=== PATIENT | male | born 1935 | race Caucasian/White ===

== ENCOUNTER → 2018-05-13 | Outpatient (CLI) | payer MEDICARE | LOC: M.RAD 08:52 | DX: J44.0 Chronic obstructive pulmonary disease with (acute) lower respiratory infection (principal) ==

== ENCOUNTER 2019-01-16 08:30 | Inpatient (IN) | payer MEDICARE ==
[2019-01-16] VITALS (8 sets, daily range): BP systolic 106–141; BP diastolic 28–55
[~2019-01-16] VITALS: Ht 177.8 cm; Wt 65.7 kg
--- NOTE | ~2019-01-16 | CON ---
[facility] [address] [place] [address] CONSULTATION Name: JOY LESTER Room: [address] IN M.R.#: [id number] Admission: 01/16/19 Attend Phys: Dolly Jimenes MD Discharge: Date of : 37 Report #: [id number] THIS REPORT FOR: //name// CC: Cristi Jimenes DATE OF SERVICE: 01/18/2019 CONSULTATION: Infectious diseases. HISTORY OF PRESENT ILLNESS: The patient is an 83-year-old white male admitted to [facility] on February 06, complaining of nausea, vomiting and possibly diarrhea for about a day and a half. The patient was noted to be short of breath and have low blood pressure. He had a history of abdominal aortic aneurysm. There was concern the patient may have an impending ruptured aneurysm. He was admitted to the hospital. The aneurysm workup was negative, but the patient was noted to have an elevated white count at 37,000. He was started on cefepime, Flagyl, oral vancomycin 500 mg q.i.d. and IV Cipro. Despite of this intensive antibiotic therapy, the white count went up to 82,000 as hemoglobin fell from 9.7 to 7.6. Infectious Disease consultation was requested to assist with antibiotic management. The patient had been admitted recently to [facility] from January 06-January 10 with a diagnosis of sepsis. He was discharged on Augmentin. He thought he was doing pretty well until he developed the GI symptoms at the end of December. PAST MEDICAL HISTORY: Past history is significant for COPD, on chronic oxygen. The patient has a diagnosis of rheumatic heart disease and mild aortic and tricuspid valve, although they both looked pretty good on the echocardiogram as described below. MEDICATIONS RECONCILIATION: The patient's current medications are as follows: Vancomycin 500 mg q. 12, enoxaparin 40 mg subcutaneously at bedtime, vancomycin 500 mg p.o. q.i.d., cefepime 2 g IV daily, lorazepam 0.5 mg q. 6 IV p.r.n., ondansetron 4 mg IV q. 6 p.r.n., diphenhydramine 25 mg at bedtime p.o. p.r.n., ipratropium and albuterol aerosol 3 mL q. 4h. by inhalation, fluticasone proprionate spray each nostril daily, metronidazole 500 mg q. 8, phosphate, magnesium, potassium as needed, methylprednisolone 62.5 mg q. 12, tamsulosin 0.4 mg daily, guaifenesin 600 mg p.o. b.i.d. and pantoprazole 40 mg IV b.i.d. SOCIAL HISTORY: The patient is . Apparently, he was a smoker, although this is not quantified in the chart. No history of alcohol. REVIEW OF SYSTEMS: Unavailable [place] [address] CONSULTATION Name: JOY LESTER Room: [address] IN [facility].#: [id number] Admission: 01/16/19 Attend Phys: Dolly Jimenes MD Discharge: Date of : 36 Report #: [id number] PHYSICAL EXAMINATION: GENERAL: The patient appears his stated age, sedated and minimally responsive but not in any distress. He appears comfortable. SKIN: Sallow but without rash, lesion or exanthem. ENT: Negative. HEART: Sounds S1 and S2. CHEST: Breath sounds are diminished. ABDOMEN: Belly is obese, soft and nontender. EXTREMITIES: Unremarkable. LABORATORY DATA: The white count is 82,000. Of note, the patient had a leukocytosis 2 weeks ago at [facility]. The family states it was measured at 79,000 and a bone marrow biopsy was done. They were scheduled to follow up with the buckle attacher in the office but would not able to make the appointment because the patient was too ill. Hemoglobin has gone from 9.7 to 7.6 and hematocrit 25%. Electrolytes are normal. BUN 32, creatinine 1.7 and glucose is 240 in a patient without a diagnosis of diabetes. Lactic acid is 1.9. Troponin has gone from 0.06 to 0.07 to 0.09. Liver function tests are normal. The blood gas showed pH 7.16, pCO2 of 51.9 and pO2 of 78. RADIOLOGICAL DATA: CT scan showed rectosigmoid colitis. The patient had a calcified aortic aneurysm, which looks like it had an earlier dissection, which calcified. Echocardiogram showed sclerosis of the aortic valve, but no stenosis nor insufficiency. The mitral valve and tricuspid valves has thickened leaflets with mild insufficiency. ASSESSMENT AND PLAN: In summary, the patient was treated for "sepsis" at [facility]. He returns 2 weeks later while still on antibiotics, complaining of nausea, vomiting, possibly diarrhea. He has a very high white count. A CT scan suggested colitis as well as respiratory insufficiency. At this time, I would like to simplify the antibiotics to treat for possible pneumonia. We will use cefepime and Flagyl. I am concerned about Clostridium difficile colitis, although the patient is having formed stool in the lab as rejected the study for Clostridium difficile as a result. I would think oral vancomycin though it would be reasonable given colitis in the setting of antibiotics. Study suggested 125 mg is as effective as 500 mg. I would like to discontinue the Cipro as this simply increases in the pressure towards Clostridium difficile and related to that much to the cefepime. I think we should check a hemoglobin A1c with the hyperglycemia. It would be relevant to obtain the records from [facility] in particular to see the comments of the hematologists and pathologist to review the bone marrow. I want to do a followup chest x-ray. We will give lactobacillus to try to prevent Clostridium difficile. If the patient should have any liquid stool, will allow the nurses send [place] [address] CONSULTATION Name: JOY LESTER Room: [address] IN .R.#: [id number] Admission: 01/16/19 Attend Phys: Dolly Jimenes MD Discharge: Date of : 36 Report #: [id number] For now, we will simplify the antibiotics to cefepime, Flagyl and oral vancomycin. We will await results of the request for records from [facility] and continue supportive therapy. I appreciate the opportunity of input in the care of this complex patient. Dr. Swanson will return tomorrow and assume additional followup care. By: 0052 [id number] Tom MD /nt
--- NOTE | ~2019-01-16 | PROC ---
[address] [address] PROCEDURE REPORT Name: JOY LESTER Room: [address] IN .R.#: [id number] Admission: 01/16/19 Attend Phys: Dolly Jimenes MD Discharge: Date of : 36 Report #: [id number] THIS REPORT FOR: //name// For GI report, please see the Provation report in Perceptive 7 content. By: 1325Medical Records Staff [facility] /MICHELLE
--- NOTE | ~2019-01-16 | CON ---
[address] [address] CONSULTATION Name: TAYLERJOY E Room: [address] IN .R.#: [id number] Admission: 01/16/19 Attend Phys: Dolly Jimenes MD Discharge: Date of : 36 Report #: [id number] THIS REPORT FOR: //name// CC: Cristi Jimenes DATE OF SERVICE: 01/16/2019 INPATIENT CONSULTATION REQUESTING PHYSICIAN: Dr. Jimenes REASON FOR CONSULTATION: History of respiratory insufficiency, diastolic heart failure. HISTORY OF PRESENT ILLNESS: The patient is an 83-year-old man who presented with colitis, shortness of breath difficulties and had evidence of pulmonary congestion. He was admitted to the ICU and placed on broad-spectrum antibiotics and diuretics with improvement overall in his clinical respiratory function with diuresis. He did have an echocardiogram on the first of this month, which demonstrated grossly normal LV systolic function, moderately elevated PA pressures and aortic sclerosis. Clinically, the patient is a poor historian. He is a bit confused, has a bit of an encephalopathy, so he was not able to give a good history, but there does not appear to be any evidence of chest pain or pressure, but had been progressively more short of breath. GI has seen him and there was concern he may have C. diff colitis. He is on broad spectrum antibiotics. PAST MEDICAL HISTORY: He carries the following medical problems: Acute on chronic kidney disease, sepsis syndrome, urinary retention, COPD, rheumatic heart disease, thrombocytopenia. MEDICATIONS: He was on the following medications on presentation: Augmentin, Colace, Flonase, guaifenesin, albuterol, Atrovent, Zantac, Flomax. SOCIAL HISTORY: Currently not actively smoking without ethanol use. FAMILY HISTORY: Noncontributory. REVIEW OF SYSTEMS: CARDIOVASCULAR: He is without chest [place] [address] CONSULTATION Name: JOY LESTER Room: [address]#: [id number] Admission: 01/16/19 Attend Phys: Dolly Jimenes MD Discharge: Date of : 36 Report #: [id number] PULMONARY: Positive shortness of breath. NEUROLOGIC: Denies seizures. Positive confusion. HEMATOLOGIC: No history of anemia. RENAL: Positive history of chronic kidney disease. SKIN: No rashes. PHYSICAL EXAMINATION: VITAL SIGNS: Stable, in sinus rhythm with a blood pressure of 121/83. GENERAL: This is a confused elderly male. He is in no apparent distress. HEENT: Eyes are intact. No facial asymmetry. NECK: Supple, no jugular venous distention. CARDIOVASCULAR: Regular. There is a faint apical murmur. LUNGS: Clear to auscultation with diminished breath sounds. ABDOMEN: Nontender. EXTREMITIES: There is no peripheral edema. Distal extremity pulses, radial and dorsalis pedis pulses are normal. LABORATORY DATA: Electrocardiogram shows sinus rhythm with atrial enlargement. There is a pulmonary disease. IMPRESSION: 1. Respiratory insufficiency. I suspect this is a combination of mild diastolic heart failure and volume overload from his initial presentation with gastrointestinal illness and he has responded to Lasix. He has underlying lung disease. 2. Acute on chronic diastolic heart failure. 3. Tricuspid regurgitation, is likely secondary to obstructive lung disease. At this point, I would continue with gentle diuresis, but given he has kidney dysfunction, I would probably stop IV Lasix today. He seems to have improved clinically. I would monitor his intake and output. By: 1120 0008Josh French MD, FACC /nt
[2019-01-16 09:03] LABS: POC CA IONIZED 4.6 mg/dL (4.5-5.3); POC CREATININE 1.6 mg/dL (0.6-1.3); POC HEMOGLOBIN 9.9 g/dL (12.0-17.0); POC POTASSIUM 4.7 mmol/L (3.5-4.9)
[2019-01-16 09:29] LABS: HEMOGLOBIN 9.7 gm/dL (14.0-18.0); MCH 31.6 pg (26.0-34.0); MCHC 32.4 g/dL (28.0-37.0); MCV 97.3 fL (80.0-100.0); MPV 9.6 fl. (7.2-11.1); NUCLEATED RBCS 0 /100WBC; PLATELET COUNT* 83 thou/uL (150-400); RBC 3.08 mil/uL (4.50-6.00); RDW-CV 14.8 % (10.5-14.5)
[2019-01-16 09:52] LABS: ABSOLUTE LYMPHOCYTES 1.1 thou/uL (0.8-5.3); ABSOLUTE MONOCYTES 0.7 thou/uL (0.0-1.2); ABSOLUTE NEUTROPHILS 35.2 thou/uL (1.6-8.1); ATYPICAL LYMPHS 1 %; METAMYELOCYTES 3 %; PLATELET ESTIMATE DECREASED
[2019-01-16] MEDS ORDERED: AUGMENTIN 875-1 EACH PO (10:02)
[2019-01-16] MEDS ORDERED: COLACE100 MG PO (10:03)
[2019-01-16] MEDS ORDERED: FLONASE 0.05%50 MCG NASAL (10:03)
[2019-01-16] MEDS ORDERED: SINGULAIR 10 MG10 M1 PO (10:04)
[2019-01-16] MEDS ORDERED: IPRAT-ALBUT 0.5-3 ML INH (10:04)
[2019-01-16] MEDS ORDERED: GUAIFENESIN ER600 MG PO (10:04)
[2019-01-16] MEDS ORDERED: ZANTAC 150MG T150 MG PO (10:05)
[2019-01-16] MEDS ORDERED: PREDNISONE 10 M10 MG PO (10:05)
[2019-01-16] MEDS ORDERED: FLOMAX0.4 MG PO (10:06)
[2019-01-16] MEDS ORDERED: FLORASTOR250 MG PO (10:06)
--- NOTE | 2019-01-16 10:36 | NUR ---
URINE ORDERED, STATES HE IS UNABLE TO GO DUE TO NOT HAVING FLOWMAX FOR 3 DAYS, ATTEMPTED TO STRAIGHT CATH, NO URINE OBTAINED, ED MD AWARE
[2019-01-16 10:38] LABS: ALBUMIN 3.1 g/dL (3.4-5.0); ALKALINE PHOSPHATASE 87 U/L (46-116); ANION GAP 10 mmol/L (7-16); BUN 37 mg/dL (7-18); CALCIUM 8.5 mg/dL (8.5-10.1); CHLORIDE 103 mmol/L (98-107); CO2 29 mmol/L (21-32); GLUCOSE 147 mg/dL (70-99); LIPASE 50 U/L (73-393); POTASSIUM 4.1 mmol/L (3.5-5.1); SGOT 19 U/L (15-37); SGPT 26 U/L (30-65); SODIUM 142 mmol/L (136-145); TOTAL BILIRUBIN 0.6 mg/dL (<0.1-1.0); TOTAL PROTEIN 6.2 g/dL (6.4-8.2)
[2019-01-16 11:27] LABS: URINE BILIRUBIN NEGATIVE (Negative); URINE BLOOD 2+ (Negative); URINE CLARITY CLEAR; URINE COLOR YELLOW; URINE GLUCOSE-RANDOM NEGATIVE (Negative); URINE KETONES NEGATIVE (Negative); URINE LEUKOCYTES-REFLEX NEGATIVE (Negative); URINE NITRITE-REFLEX NEGATIVE (Negative); URINE PROTEIN NEGATIVE (Negative); URINE UROBILINOGEN 0.2 E.U./dl (0.2-1.0)
[2019-01-16 11:38] LABS: BACTERIA-REFLEX 1-9 Few /HPF (None Seen); CASTS None Seen /LPF (None Seen); CRYSTALS None Seen /LPF (None Seen); MUCUS None Seen strn/LPF (None Seen); SQUAMOUS 4-10 Moderate /LPF (0-3); URINE RBC >20 Many /HPF (0-2); URINE WBC-REFLEX 0-5 Rare /HPF (0-5)
[2019-01-16 11:39] LABS: TROPONIN-I LEVEL <0.06 ng/mL (<0.06)
--- NOTE | 2019-01-16 15:40 | EKG ---
[place] [address] ELECTROCARDIOGRAM REPORT Name: JOY LESTER Room: [address] ADM IN .R.#: [id number] Admission: 01/16/19 Attend Phys: Dolly Jimenes MD Discharge: Date of : 37 Report #: [id number] THIS REPORT FOR: //name// [facility] ED Test Date: 2019-01-16 Test Time: 08:51:03 Pat Name: JOY LESTER Department: Room: [facility] Gender: M [employer]umping [employer] Engineer: SELENA : 1935 Requested By: Philippe Will Order Number: [id number] MD: Juan C Baeza Measurements Intervals [place] Rate: 98 P: 89 IA: 140 QRS: 10 QRSD: 86 T: 46 QT: 343 QTc: 438 Interpretive Statements Sinus rhythm Atrial premature complex Right atrial enlargement Low voltage, extremity leads Consider anterior infarct Minimal ST depression, inferior leads No previous ECG available for comparison Electronically Signed On 01-16-2019 15:40:08 ASSISTANT WOMEN'S SOCCER COACH by Juan C Baeza [email or web address] <ELECTRONICALLY SIGNED> By: Juan C Baeza MD, [facility] 01/16/19 1540 [phone] Juan C Baeza MD, [facility] /EPI
--- NOTE | 2019-01-16 16:07 | 2DMMODE ---
[place] [address] 2 D/M-MODE ECHOCARDIOGRAM Name: JOY LESTER Room: [address] IN [facility]#: [id number] Admission: 01/16/19 Attend Phys: Dolly Jimenes, Discharge: Date of : 37 Date of Service: 01/16/19 1607 Report #: [id number] THIS REPORT FOR: //name// APPROVED REPORT Study performed: 01/16/2019 14:24:21 EXAM: Comprehensive 2D, Doppler, and color-flow Echocardiogram Patient Location: In-Patient Room #: [facility] Status: routine BSA: 1.85 HR: 89 bpm BP: 140/55 mmHg Rhythm: NSR Other Information Study Quality: Good Indications Dyspnea 2D Dimensions IVSd: 10.34 (7-11mm) LVOT Diam: 20.96 (18-24mm) LVDd: 38.42 mm PWd: 10.61 (7-11mm) Ascending Ao: 33.05 (22-36mm) LVDs: 23.17 (25-40mm) Aortic Root: 33.68 mm Aortic Valve AoV Peak Brian.: 1.33 m/s AO Peak Gr.: 7.07 mmHg LVOT Max P.63 mmHg AO Mean Gr.: 4.07 mmHg LVOT Mean P.51 mmHg LVOT Max V: 0.81 m/s AO V2 VTI: 22.51 cm LVOT Mean V: 0.58 m/s MARIN (VTI): 2.89 cm2 LVOT V1 VTI: 18.87 cm Mitral Valve E/A Ratio: 0.68 MV Decel. Time: 211.34 ms MV E Max Brian.: 0.77 m/s MV PHT: 61.29 ms MVA (PHT): 3.59 [place] [address] 2 D/M-MODE ECHOCARDIOGRAM Name: JOY LESTER Room: [address] IN ..#: [id number] Admission: 01/16/19 Attend Phys: Dolly Jimenes, Discharge: Date of : 37 Date of Service: 01/16/19 1607 Report #: [id number] E/Lateral E': 7.70 E/Medial E': 8.56 Medial E' Brian.: 0.09 m/s Lateral E' Brian.: 0.10 m/s Pulmonary Valve PV Peak Brian.: 1.06 m/s PV Peak Gr.: 4.52 mmHg Tricuspid Valve RAP Estimate: 5.00 mmHg TR Peak Gr.: 31.06 mmHg RVSP: 36.00 mmHg PA Pressure: 36.00 mmHg Left Ventricle The left ventricle is normal size. There is normal LV segmental wall motion. There is normal left ventricular wall thickness. Left ventricular systolic function is normal. The left ventricular ejection fraction is within the normal range. LVEF is 65-70%. Grade I - abnormal relaxation pattern. Right Ventricle The right ventricle is normal size. The right ventricular systolic function is normal. Atria The left atrium size is normal. The right atrium size is normal. Aortic Valve Mild aortic valve sclerosis. No aortic regurgitation is present. There is no aortic valvular stenosis. Mitral Valve Mitral valve leaflets are thickened. Mild mitral regurgitation. No evidence of mitral valve stenosis. Tricuspid Valve The tricuspid valve is normal in structure. Mild tricuspid regurgitation. estimated pa pressure 40 mm Hg Pulmonic Valve The pulmonary valve is normal in structure. There is no pulmonic valvular regurgitation. Great Vessels The aortic root is normal in size. IVC is normal in size and collapses >50% [place] [address] 2 D/M-MODE ECHOCARDIOGRAM Name: JOY LESTER Room: [address] IN [facility]#: [id number] Admission: 01/16/19 Attend Phys: Dolly Jimenes, Discharge: Date of : 37 Date of Service: 01/16/19 1607 Report #: [id number] Pericardium There is no pericardial effusion. <Conclusion> LVEF is 65-70%. Mild aortic valve sclerosis. Mitral valve leaflets are thickened. Mild mitral regurgitation. Mild tricuspid regurgitation. estimated pa pressure 40 mm Hg <ELECTRONICALLY SIGNED> By: Juan C Baeza MD, [facility] 01/16/19 1607 06 160 Juan C Baeza MD, FAC /INF
--- NOTE | 2019-01-16 18:58 | NUR ---
pt arrived to room 222 from ER at approx 1240, pt oriented to self. Very drowsy, slurred speech, on 2l o2. VSS on arrival. Santiago in place draining dark yellow urine. pt c/o some back pain, and some nausea. no BM today, pt placed in isolation to check for c-diff, pts states he has not had any loose stools recently. pts daughters in to visit this afternoon, admission done as charted with DPOA assist. Pts BP noted to be low, dr notified, orders recieved. pt moniotored gail, at bedside this evening. fall precatuions in place. will continue to monitor.
[2019-01-17 00:41] VITALS: BP 103/39
--- NOTE | 2019-01-17 04:46 | NUR ---
ASSUMED CARE OF PT AFTER REPORT AT 1930. PT A&OX2-3. NOT ORIENTED TO PLACE AND TIME. LETHARGIC. PT ON O2 AT 2L NC/TRILOGY WHEN SLEEPING WITH 98% O2 SAT. PT TRACING SR/PACS ON TELE. PT WITH BROWN TO DEPENDENT DRAIN. MAINTAINED ON ISOLATION PRECUATION FOR POSSIBLE C. DIFF. PT WITH WOUND ON RIGHT HIP. CLEANED & PAT DRY. PHOTOGRAPH TAKEN. COVERED WITH MEPILEX. PT DENIES ANY PAIN OR DISCOMFORT. TURNED PT TO SIDES. CALL LIGHT WITHIN REACH. FALL PRECAUTIONS IN PLACE.
[2019-01-17 04:53] VITALS: BP 120/44
[2019-01-17 08:00] VITALS: BP 97/31
[2019-01-17 10:19] LABS: ABSOLUTE LYMPHOCYTES 0.6 thou/uL (0.8-5.3); ABSOLUTE MONOCYTES 0.3 thou/uL (0.0-1.2); ABSOLUTE NEUTROPHILS 31.5 thou/uL (1.6-8.1); BASOPHILS 0.1 %; HEMATOCRIT 24.2 % (42.0-52.0); LYMPHOCYTES 1.8 %; MCH 32.1 pg (26.0-34.0); MCHC 31.8 g/dL (28.0-37.0); MCV 100.7 fL (80.0-100.0); MPV 9.4 fl. (7.2-11.1); NUCLEATED RBCS 0 /100WBC; PLATELET COUNT* 70 thou/uL (150-400); POLYS 97.1 %; RDW-CV 16.2 % (10.5-14.5); WBC 32.5 thou/uL (4.0-11.0)
[2019-01-17 10:21] LABS: HEMOGLOBIN 7.7 gm/dL (14.0-18.0)
[2019-01-17 10:46] LABS: ALBUMIN 2.5 g/dL (3.4-5.0); ALKALINE PHOSPHATASE 66 U/L (46-116); ANION GAP 10 mmol/L (7-16); BUN 32 mg/dL (7-18); CALCIUM 7.1 mg/dL (8.5-10.1); CHLORIDE 111 mmol/L (98-107); CO2 23 mmol/L (21-32); CREATININE 1.7 mg/dL (0.6-1.3); GLUCOSE 217 mg/dL (70-99); MAGNESIUM 2.2 mg/dL (1.8-2.4); POTASSIUM 4.3 mmol/L (3.5-5.1); SGOT 17 U/L (15-37); SGPT 22 U/L (30-65); SODIUM 144 mmol/L (136-145); TOTAL BILIRUBIN 0.2 mg/dL (<0.1-1.0); TOTAL PROTEIN 4.9 g/dL (6.4-8.2); TROPONIN-I LEVEL <0.06 ng/mL (<0.06)
[2019-01-17 12:00] VITALS: BP 111/40
--- NOTE | 2019-01-17 15:38 | NUR ---
PT CARE ASSUMED AFTER REPORT. ASSESSMENT COMPLETE. SR WITH PAC'S ON MONITOR. PT BP LOW THIS AM, 95/35. DR ANDERSON NOTIFIED. 500ML BOLUS GIVEN. PT BP BETTER AFTER BOLUS. PT LETHARGIC PRIOR TO BOLUS. ALERT NOW. NEW IV ACCESS OBTAINED R/T PREVIOUS ONE LEAKING. BROWN TO DD. IVF INFUSING. DENIES PAIN. PROGRESSING TOWARDS GOALS. FAMILY CONCERNS ADDRESSED PER THIS NURSE AND DR ANDERSON.
[2019-01-17 16:00] VITALS: BP 123/90
[2019-01-17 20:00] VITALS: BP 123/44
[2019-01-18] VITALS (16 sets, daily range): BP systolic 102–138; BP diastolic 29–88
--- NOTE | 2019-01-18 05:46 | NUR ---
ASSUMED ACRE OF PT AFTER REPORT AT 1930. PT A&OX2. NOT ORIENTED TO PLACE & TIME. VSS. PHSICAL ASSESSMENT COMPLETED AND CHARTED. PT ON O2 AT 2 WITH 96% O2 SAT. PT NOT TOLERATING TRILOGY TONIGHT. PT TRACING SR/ST ON TELE. PT WITH BROWN TO DEPENDENT DRAIN. PT COMPLAINED OF SOA. LABORED BREATHING RR-30'S-40'S. HR 120'S-140'S. INCREASED O2 AT 3L NC. DR ANDERSON INFORMED WITH NEW ORDER OF STAT XRAY & ABG. CRITICAL ABG & WBC RELAYED TO DR ANDERSON. PT HAS NOT SLEPT ALL NIGHT. CALL LIGHT WITHIN REACH. MAINTAINED ON ISOLATION PRECAUTION. STOOL SPECIMEN WILL SEND TO LAB.
[2019-01-18 05:51] LABS: ALBUMIN 2.8 g/dL (3.4-5.0); CALCIUM 7.3 mg/dL (8.5-10.1); CREATININE 1.7 mg/dL (0.6-1.3); MAGNESIUM 2.1 mg/dL (1.8-2.4); TOTAL BILIRUBIN 0.3 mg/dL (<0.1-1.0); TOTAL PROTEIN 5.4 g/dL (6.4-8.2); TROPONIN-I LEVEL 0.09 ng/mL (<0.06)
--- NOTE | 2019-01-18 06:30 | NUR ---
TRANSFERRED FROM TELE TO ICU. REPORT GIVEN. PLACED ON BIPAP PER DR. ANDERSON'S ORDERS. LASIX AND ATIVAN GIVEN, PATIENT WAS PULLING OF BIPAP. LOOKS MORE COMFORTABLE BUT STILL TACHYPNEIC. REPORT GIVEN TO LAUREN Gomez RN. SHE WILL BE CALLING PULM AND CARD CONSULTS.
--- NOTE | 2019-01-18 09:39 | NUR ---
YUNI COPELAND FROM LAB CALLED TO GIVE CRITICAL VALUES. VALUES GIVEN TO DR RETANA AT 0900 AND REPORTED TO BRIAN AGUILAR AT 0845.
--- NOTE | 2019-01-18 18:06 | NUR ---
PT PROGRESSING TOWARDS GOALS THIS SHIFT. PT TITRATED TO NC AT 3.5L OXYGEN FROM BIPAP. TOLERATING WELL. PT TO WEAR BIPAP WHILE SLEEPING. ISOLATION FOR C-DIFF DC'D D/T PT NOT HAVING ANY STOOLS. PT HAS HAD ONE STOOL SINCE ADMISSION THAT WAS FORMED. NO OTHER CONCERNS AT THIS TIME. CLWR. WCTM.
[2019-01-19] VITALS (11 sets, daily range): BP systolic 119–156; BP diastolic 41–85
--- NOTE | 2019-01-19 07:24 | NUR ---
VITALS WNL. SEE MAR. SEE CHARTING. FALL PRECATUIONS IN PLACE.
--- NOTE | 2019-01-19 09:44 | NUR ---
Nutrition: Pt assessed for nursing risk 2 points. Admitted with coliitis. GI eval in near future. Only 1 BM since admit, vanc stopped. On lasix, on bipap. BUN 36, cr 1.7, BG 190s, alb 2.7, prealb 16.2. Chopped diet. Wt fluctuating 150, 125, 118, 141#. Pt in [facility] with recent PNA, COPD, decreased appetite, per H&P. Will follow wt trends, po intake, BM, need for supplement. Mild risk. 01/24/19. PLEASE REWEIGH FOR ACCURACY.
--- NOTE | 2019-01-19 14:00 | NUR ---
PT ADMITTED 01/16 WITH COLITIS AND TRELL. PT NOW TELE STATUS. NO FAMILY HERE EARLIER AND PT WAS SLEEPING. SPOKE WITH TR[facility] FROM [facility]. PT HAD BEEN ON SERVICE WITH THEM FOR HOME HEALTH, THEY WERE GETTING READY TO DISCHARGE HIM FROM HOME HEALTH, WITH THE PLAN TO TRANSITION HIM TO HOSPICE WITH [facility]. WILL TALK WITH PT AND FAMILY ABOUT DISCHARGE PLANS.
--- NOTE | 2019-01-19 14:52 | NUR ---
WOUND NURSE: PATIENT SEEN TO ADDRESS SKIN LESION ON THE RIGHT HIP. APPEARS TO BE A SMALL SKIN LESION FROM A SCRATCH MEASURING 0.1 X 0.5 X 0.1 CM. THERE IS NO DRAINAGE. CLEANSED WITH SOAP AND WATER, RINSED WITH WATER, THEN PATTED DRY. APPLIED MARTHON SKIN PROTECTANT TO WOUND AND LET DRY, THEN TABLE HAND. THIS WAS TOLERATED WELL BY PATIENT.
--- NOTE | 2019-01-19 18:12 | NUR ---
PT REMAINS STABLE THROUGHOUT THE DAY. SPEECH EVALUATED PT. PT SHOWED SIGNS OF DESATURATION, O2 WAS TITRATED TO RETURN SATURATION BACK TO BASELINE >90. PT MADE NPO AFTER SPEECH EVAL DUE TO RISK FOR ASPIRATION. WILL REMAIN NPO UNTIL TOMORROW FOR SWALLOW STUDY. PT FOLLOWS COMMANDS AND REMAINS CONFUSED AT TIMES. PT COMPLAINS OF BEING THIRSTY BUT REMAINS COMFORTABLE. PT REFUSED TURNS THROUGHOUT MOST OF THE DAY EVEN AFTER EDUCATING PATIENT ABOUT RISK FOR BEDSORES.
[2019-01-19 23:07] LABS: GLYCOHEMOGLOBIN (HGB A1C) 6.3 % (4.8-5.6)
[2019-01-20] VITALS: BP 143/51
[2019-01-20 04:00] VITALS: BP 129/57
[2019-01-20 04:29] LABS: HEMATOCRIT 23.1 % (42.0-52.0); HEMOGLOBIN 7.5 gm/dL (14.0-18.0); MCHC 32.6 g/dL (28.0-37.0); MCV 98.1 fL (80.0-100.0); MPV 10.4 fl. (7.2-11.1); RBC 2.36 mil/uL (4.50-6.00); RDW-CV 15.2 % (10.5-14.5)
[2019-01-20 04:34] LABS: ALBUMIN 2.6 g/dL (3.4-5.0); CALCIUM 8.1 mg/dL (8.5-10.1); CREATININE 1.8 mg/dL (0.6-1.3); POTASSIUM 4.5 mmol/L (3.5-5.1); TOTAL BILIRUBIN 0.4 mg/dL (<0.1-1.0)
[2019-01-20 04:38] LABS: WBC 34.8 thou/uL (4.0-11.0)
--- NOTE | 2019-01-20 06:12 | NUR ---
VITALS WNL. SEE MAR. SEE CHARTING. FALL PRECAUTIONS IN PLACE. HOURLY ROUNDING FOR SAFETY.
[2019-01-20 06:25] LABS: BE 0.8 mmol/L (-2 to +3); PCO2 41.8 mmHg (35.0-45.0); pH 7.405 (7.340-7.450)
[2019-01-20 06:29] LABS: PO2 213.4 mmHg (75.0-100.0)
[2019-01-20 08:31] VITALS: BP 137/76
[2019-01-20 12:35] VITALS: BP 131/47
[2019-01-20 15:30] VITALS: BP 149/60
--- NOTE | 2019-01-20 18:30 | CON ---
[address] [address] CONSULTATION Name: JOY LESTER Room: [address] IN M.R.#: [id number] Admission: 01/16/19 Attend Phys: Dolly Jimenes MD Discharge: Date of : 37 Report #: [id number] THIS REPORT FOR: //name// CC: Cristi Jimenes DATE OF SERVICE: 01/17/2019 REASON FOR CONSULT: Diarrhea, abdominal pain and abnormal CT. HISTORY OF PRESENT ILLNESS: This is an 83-year-old male with a history of COPD, who is on 3 liters of O2 at home. The patient apparently was discharged from [facility] with diagnosis of sepsis and respiratory failure. During his stay there, he received lots of IV steroids and antibiotics. Today, the patient denies any abdominal pain or diarrhea. He also denies nausea and vomiting and reports that he has been eating well. He has a weight loss of 20 pounds over the past several months. He had imaging study here, which showed diffuse colitis and inflammation of the rectum and colon up to the descending colon. He denies any hematochezia or melena and admits that he has never had a colonoscopy yet. The patient also has elevated white count and reports that during his stay at [facility] this was worked up by Hematology and he had bone marrow biopsies, which were unrevealing. His leukocytosis was blamed on chronic steroid use. His current complaint is weakness and lower back pain. The reports that the lower back pain started after discharge from [facility]. The patient also was mobile and ambulating in September, but has not been able to do so due to excessive weakness. PAST MEDICAL HISTORY: Significant for history of COPD on 3 liters of O2 at home, chronic steroid use due to his COPD, questionable diagnosis of pneumonia, respiratory failure, sepsis, leukocytosis, urinary retention, hematuria, tricuspid insufficiency, gastroesophageal reflux and constipation. ALLERGIES: No known drug allergy. MEDICATIONS: Please refer to MAR. SOCIAL HISTORY: The patient has long history of tobaccoism, but has not smoked for a while. He denies alcohol use. He lives at home, but is not able to ambulate due to weakness and is on 3 liters of O2 chronically. FAMILY HISTORY: [place] [address] CONSULTATION Name: VINICIOLUANAJOY Room: [address]#: [id number] Admission: 01/16/19 Attend Phys: Dolly Jimenes MD Discharge: Date of : 36 Report #: [id number] PHYSICAL EXAMINATION: VITAL SIGNS: Reveals blood pressure of 97/44, respirations 17, pulse 76 and temperature 97.9. LUNGS: Decreased breath sounds at the bases. CARDIOVASCULAR: Regular rate. ABDOMEN: Mildly distended, but soft and nontender. Bowel sounds are positive. NEUROLOGIC: The patient is hard of hearing, otherwise alert and oriented x 3. LABORATORY DATA: Reveal sodium of 142, potassium of 4.1, BUN is 37, creatinine 2.0, glucose 147, lipase is 50, ALT is 26, alkaline phosphatase 87, total bilirubin 6.2, albumin 3.1. WBC is 32.5 down from 37, hemoglobin is 7.7 down from 9.7 with platelet of 70. IMAGING: CT of abdomen and pelvis was obtained on admission. This was significant for distal thickening of the rectum and left colon. There is also intraluminal fluid and mild pericolonic inflammation. ASSESSMENT AND PLAN: The patient with anemia, leukocytosis and abnormal CT. He also has never had a colonoscopy. We will consider colonoscopy when the patient is clinically more stable. Meanwhile, monitor H and H and continue antibiotic therapy. Since the patient denies any diarrhea, I doubt that he has Clostridium difficile. We will obtain stool Clostridium difficile assay as part of his workup. The patient is agreeable with plan. <ELECTRONICALLY SIGNED> By: Nae Thomas MD 01/20/19 1830 1051 [id number] Thomas MD /nt
[2019-01-21 00:50] VITALS: BP 135/56
[2019-01-21 04:56] VITALS: BP 148/53
[2019-01-21 04:57] LABS: HEMOGLOBIN 7.2 gm/dL (14.0-18.0); MCH 32.1 pg (26.0-34.0); MCHC 32.7 g/dL (28.0-37.0); MCV 98.1 fL (80.0-100.0); MPV 10.7 fl. (7.2-11.1); RBC 2.25 mil/uL (4.50-6.00); WBC 26.1 thou/uL (4.0-11.0)
[2019-01-21 05:38] LABS: ALBUMIN 2.4 g/dL (3.4-5.0); CALCIUM 8.3 mg/dL (8.5-10.1); CREATININE 1.6 mg/dL (0.6-1.3); MAGNESIUM 2.1 mg/dL (1.8-2.4); POTASSIUM 4.3 mmol/L (3.5-5.1); TOTAL BILIRUBIN 0.3 mg/dL (<0.1-1.0); TOTAL PROTEIN 4.9 g/dL (6.4-8.2)
--- NOTE | 2019-01-21 06:16 | NUR ---
VITALS WNL. SEE MAR. SEE CHARTING. FALL PRECAUTIONS IN PLACE. HOURLY ROUNDING FOR SAFETY.
--- NOTE | 2019-01-21 07:34 | CON ---
[address] [address] CONSULTATION Name: JOY LESTER Room: [address] IN M.R.#: [id number] Admission: 01/16/19 Attend Phys: Dolly Jimenes MD Discharge: Date of : 37 Report #: [id number] THIS REPORT FOR: //name// CC: Cristi Jimenes DATE OF SERVICE: 01/18/2019 REFERRING PHYSICIAN: Dr. Willard Galo. REASON FOR EVALUATION: Acute respiratory failure. HISTORY OF PRESENT ILLNESS: This is an 83-year-old gentleman who is on home Trilogy with history of COPD. Was admitted back on 01/16/2019. Initially, the patient had nausea and vomiting for around two days. He had previous admission at [facility] in December for respiratory distress. Record is not available. Since yesterday, the patient is having worsening respiratory failure and he was transferred to the ICU for further care. He is currently on BiPAP with improvement. His initial workup, which I have reviewed showed that he has acute hypercapnic respiratory failure, pH was 7.1, pCO2 52, pO2 was 77. This was on 3 liters nasal cannula. Today, he is on BiPAP. His pH 7.3, pCO2 36, pO2 118, and this is BiPAP 16/8 on 40%. His chest x-ray, which I have reviewed too show hyperinflation and interstitial patchy infiltrate, worse on the left side. A chest x-ray was done on 01/18/2019. He had head CT abdomen on admission, which showed distal colitis. His workup initially on 01/16/2019, white blood cell count was 37,000; currently 82,000. ALLERGIES: None. PAST MEDICAL HISTORY: Include history of COPD, on home Trilogy; previous history of thrombocytopenia; chronic kidney disease; mitral valve insufficiency. FAMILY HISTORY: Not able to obtain, the patient on BiPAP. Family not available. Discussed with nursing and records. SOCIAL HISTORY: No recreational drug use. REVIEW OF SYSTEMS: Unable to obtain. The patient as above on a BiPAP. Records reviewed. Otherwise, from the records, there was nausea and vomiting on admission, worsening respiratory distress since yesterday. PHYSICAL EXAMINATION: GENERAL: The patient not in distress with BiPAP, currently tolerating BiPAP 03/07. VITAL SIGNS: His temperature was 36.9. Pulse is 131 earlier today. Current pulse right now with BiPAP is 91. Oxygen saturation is 100% [place] [address] CONSULTATION Name: JOY LESTER Room: [address]#: [id number] Admission: 01/16/19 Attend Phys: Dolly Jimenes MD Discharge: Date of : 36 Report #: [id number] pressure 105/53 and respiratory rate is 20. HEAD AND NECK: Neck supple. Oral mucosa clear. Eyes nonicteric. The patient is arousable on BiPAP, following commands. CHEST: Clear to auscultation, equal breath sounds. CARDIOVASCULAR: Regular rhythm. ABDOMEN: Soft, nontender. EXTREMITIES: No edema. Pulses were equal. LABORATORY AND OTHER DATABASE: As above. Chest x-ray with worsening left patchy interstitial infiltrate, worse on the left side more than the right side. White blood cell count increasing to 82,000. ASSESSMENT AND PLAN: 1. Acute respiratory failure, worse left-sided infiltrate, suspect hospital-acquired aspiration pneumonia. Recommend antibiotics. Discussed with Dr. Hernandez. He is currently on vancomycin IV, which I agree with as well as Flagyl, ciprofloxacin. Today, I recommended to add cefepime and to add oral vancomycin with history of colitis. 2. Sepsis. Increased white count with history of colitis, which is worsening right now. He is on IV Flagyl. Recommended to add p.o. vancomycin. If not able to, may consider rectal vancomycin. ID to follow. ID consult ordered, which is pending. 3. We will also obtain chest x-ray in the morning. Prognosis worse. Critical care time spent was 35 minutes. <ELECTRONICALLY SIGNED> By: Clifton Grayson MD 01/21/19 0734 [id number] Ene Ayala MD /nt
[2019-01-21 08:01] VITALS: BP 149/54
--- NOTE | 2019-01-21 09:26 | NUR ---
Pt is A&O. Resides at home with , is in room at bedside and provides hx. reports that Pt has gotten progressively weaker over the past few months. Pt states that Pt has been in the hospital at [facility], 4 times since October. Per , Pt is pretty much total care at this time, stated that Pt has not even been able to feed himself recently. Pt is current with [facility] and states that she had a meeting with [facility] regarding possibly transitioning Pt to [facility], states that she was not impressed with the disability liaison officer and does not want to use that hospice, if hospice is warranted at [place]. unsure of what Pt's prognosis is, CM updated Dr and Dr plans to speak with regarding prognosis and disposition plans, CM to f/u later. Pt has a bedside commode, hospital bed, concentrator, home o2, trilogy and transport chair at home. No hx of SNF. CM to f/u with later today to determine disposition plans once Pt is medically stable. Following.
[2019-01-21 12:26] VITALS: BP 141/47
[2019-01-21 13:16] VITALS: BP 138/44
--- NOTE | 2019-01-21 19:00 | NUR ---
ASSUMED PT CARE AT 0730, FULL ASSESMENT DONE CHARTED. PT A/O X2-3, FORGETFUL, DROWSY, DENIES PAIN UNLESS PT IS MOVED OR HOB IS CHANGED THEN HE C/O BACK PAIN. PT DOES NOT REQUEST ANY PAIN MEDS. VSS, SR ON THE MONITOR. FALL PRECAUTIONS IN PLACE, PT TURNED Q 2 HR, BROWN REMOVED TODAY, INCONT OF URINE SEVERAL TIMES THIS AFTERNOON, SMALL INCONT STOOL THIS AFTERNOON. PTS AT BEDSIDE, UPDATED ON PLAN OF CARE, IS ANXIOUS. PT NOT EATING WELL, POOR APITITE, EDUCATED TO SIT HOB UP WHEN PT EATS/DRINKS, EDUCATED ON ASPERATION PRECAUTIONS, SHE VERBALIZED UNDERSTANDING. PT RESTING IN BED, CHECKED ON FREQENTLY, ASSISTED BY STAFF WITH EATING. OFFERED URINAL AFTER BROWN REMOVAL. WILL CONTINUE TO MONITOR.
[2019-01-21 20:00] VITALS: BP 119/65
[2019-01-22] VITALS: BP 124/58
--- NOTE | 2019-01-22 02:55 | NUR ---
ASSUMED PT CARE @ 1930. PT A+O. MINIMALLY VERBALLY UNLESS ASKED A DIRECT QUESTION. NO PAIN REPORTED OR OBSERVED. PT HAS BEEN REFUSING TURNS @ TIMES AND IS WEARING TRILOGY OFF AND ON (NURSING STAFF PUTS IT ON AND PT TAKES IT OFF REPETITIVELY). WILL CONTINUE TO ENCOURAGE PT TO WEAR MONITOR. CALL LIGHT IN REACH. HOURLY ROUNDING FOR SAFETY.
--- NOTE | 2019-01-22 03:52 | NUR ---
PT HAD LARGE FORMED BROWN BM. INCONTINENT OF URINE. PERICARE PROVIDED AND BARRIER CREAM APPLIED. PT AGREED TO WEAR THE TRILOGY FOR "A LITTLE WHILE."
[2019-01-22 04:00] VITALS: BP 141/62
[2019-01-22 08:00] VITALS: BP 149/53
[2019-01-22 11:45] VITALS: BP 107/53
--- NOTE | 2019-01-22 16:34 | NUR ---
PT RESTING IN BED THROUGHOUT SHIFT. PT REPOSITIONED FREQUENTLY. PT UP TO CHAIR THIS AM BUT TIRES QUICKLY. POOR APPETITE. VOIDING WELL. AT BS AND UPDATED ON PLAN OF CARE
[2019-01-22 16:51] VITALS: BP 123/41
[2019-01-22 19:45] VITALS: BP 130/46
[2019-01-23 00:20] VITALS: BP 136/43
[2019-01-23 04:03] VITALS: BP 134/54
[2019-01-23 04:35] LABS: HEMATOCRIT 24.1 % (42.0-52.0); HEMOGLOBIN 7.9 gm/dL (14.0-18.0); MCHC 32.7 g/dL (28.0-37.0); MCV 97.8 fL (80.0-100.0); MPV 10.4 fl. (7.2-11.1); NUCLEATED RBCS 0 /100WBC; PLATELET COUNT* 55 thou/uL (150-400); RBC 2.46 mil/uL (4.50-6.00); RDW-CV 14.9 % (10.5-14.5); WBC 31.5 thou/uL (4.0-11.0)
[2019-01-23 04:46] LABS: ALBUMIN 2.4 g/dL (3.4-5.0); CALCIUM 8.4 mg/dL (8.5-10.1); CREATININE 1.5 mg/dL (0.6-1.3); POTASSIUM 4.1 mmol/L (3.5-5.1); TOTAL BILIRUBIN 0.3 mg/dL (<0.1-1.0); TOTAL PROTEIN 4.8 g/dL (6.4-8.2)
--- NOTE | 2019-01-23 05:02 | NUR ---
VSS THIS SHIFT WITH NO CHANGES IN PATIENT STATUS. REMAINS ON 3L NC WHILE AWAKE AND TRILOGY WHILE SLEEPING. ALTHOUGH PATIENT OFTEN TAKES MASK OFF, HE HAS ALLOWED STAFF TO PUT IT BACK ON HIM. PATIENT INCONTINENT OF URINE AND STOOL. HAD SEMI-FORMED BOWEL MOVEMENT THIS SHIFT. MARK CARE AND BARRIER CREAM APPLIED. PATIENT REPOSITIONED Q2H. C/O PAIN ONLY DURING REPOSITIONING BUT DENIES NEEDING ANYTHING FOR RELIEF OTHER THAN REST. DAUGHTER AT BEDSIDE AT BEGINNING OF SHIFT AND UPDATED ON PLAN OF CARE. DTR VERBALIZES UNDERSTANDING. CALL LIGHT WITHIN REACH.
[2019-01-23 05:31] LABS: ABSOLUTE LYMPHOCYTES 2.5 thou/uL (0.8-5.3); ABSOLUTE MONOCYTES 1.3 thou/uL (0.0-1.2); ABSOLUTE NEUTROPHILS 27.7 thou/uL (1.6-8.1); ANISOCYTOSIS 1+; PLATELET ESTIMATE DECREASED; TOXIC GRANULATION 2+
[2019-01-23 09:25] LABS: pH 7.448 (7.340-7.450)
[2019-01-23 09:27] LABS: PO2 137.3 mmHg (75.0-100.0)
[2019-01-23 11:40] VITALS: BP 119/51
--- NOTE | 2019-01-23 19:06 | NUR ---
PATINET RESTING IN BED. POOR APPETITE BUT EATS WELL WHEN ENCOURAGED ANS ASSISTED. VITAL SIGNS STABLE ANDPAITNET IN NO APPARNET SIGNS OF DISTRESS. HOURLY ROUNDING COMPLETED FOR PATIENT SAFETY
[2019-01-23 19:45] VITALS: BP 117/41
[2019-01-23 23:11] VITALS: BP 117/49
[2019-01-24 04:08] VITALS: BP 126/35
--- NOTE | 2019-01-24 05:28 | NUR ---
VSS THROUGHOUT SHIFT. PATIENT REFUSING TO WEAR TRILOGY OVERNIGHT. REMAINS ON 3L O2 NC. PATIENT HAS C/O PAIN DURING REPOSITIONING BUT IS RELIEVED WITH REST. PATIENT HAS POOR APPETITE. ENCOURAGED PATIENT TO EAT/DRINK THROUGHOUT SHIFT BUT PATIENT REFUSES. HE TAKES SIPS OF LIQUID WITH MEDS ONLY. PATIENT REPOSITIONED FOR SKIN INTEGRITY. REMAINS INCONTINENT OF BOWEL AND BLADDER. MARK CARE PROVIDED WITH BARRIER CREAM APPLICATION. CALL LIGHT WITHIN REACH.
[2019-01-24 11:51] VITALS: BP 119/46
[2019-01-24 16:00] VITALS: BP 138/44
--- NOTE | 2019-01-24 17:46 | NUR ---
PATIENT RESTING IN BED. VITAL SIGNS STABLE. PATIET UTILIZING 3L PER NASAL CANULA WHILE AWAKE AND TRILOGY WHILE SLEEPING. POOR APPETITE. HOULRY ROUNDING COMPLETED FOR PATINET SAFETY.
[2019-01-24 19:45] VITALS: BP 109/35
[2019-01-24 23:35] VITALS: BP 104/40
[2019-01-25 04:00] VITALS: BP 133/51
[2019-01-25 04:56] LABS: HEMATOCRIT 21.5 % (42.0-52.0); HEMOGLOBIN 7.1 gm/dL (14.0-18.0); MCH 32.1 pg (26.0-34.0); MCV 97.3 fL (80.0-100.0); MPV 10.7 fl. (7.2-11.1); RBC 2.21 mil/uL (4.50-6.00); RDW-CV 15.5 % (10.5-14.5); WBC 22.5 thou/uL (4.0-11.0)
[2019-01-25 05:03] LABS: CALCIUM 8.2 mg/dL (8.5-10.1); CREATININE 1.4 mg/dL (0.6-1.3); MAGNESIUM 1.9 mg/dL (1.8-2.4); POTASSIUM 3.6 mmol/L (3.5-5.1)
--- NOTE | 2019-01-25 06:20 | NUR ---
PATIENT RESTING THROUGHOUT SHIFT. VSS. PATIENT WEARS TRILOGY OFF AND ON WHILE SLEEPING, OCCASIONALLY REMOVES MASK BUT ALLOWS STAFF TO PUT IT BACK ON HIM. PATIENT DENIES PAIN AND DISCOMFORT EXCEPT DURING REPOSITIONING. PATIENT CONTINUES TO HAVE LIQUID STOOLS. ISOLATION REMAINS IN PLACE FOR CDIFF. PATIENT REFUSED BEDTIME MEDICATIONS, STATING "HE DOESN'T LIKE THEM." ENCOURAGED PATIENT TO TAKE MEDS AND EDUCATED ON PURPOSE. STILL REFUSING. IV ABX INFUSED PER ORDERS WITH NO ADVERSE REACTIONS NOTED. CALL LIGHT WITHIN REACH
[2019-01-25 08:00] VITALS: BP 132/41
[2019-01-25 12:39] VITALS: BP 122/37
[2019-01-25 16:20] VITALS: BP 121/37
--- NOTE | 2019-01-25 19:51 | NUR ---
RECEIVED REPORT FROM RATNA TORRES. ASSUMED CARE OF PT AROUND O730. PT DROWSY THIS SHIFT, BUT EASILY AROUSABLE. ORIETNED TO SELF, PLACE AND SOMEWHAT SITUATINO. CREAM CHEESE MAKER IN PLACE TRACING SR WITH PAC'S THIS SHIFT WITH NO CHANGES. AM ASSESSMENT AND VITALS COMPLETED CHARTED. IV TO STEPHANIE REMAINS INTACT. MEDS PER EMAR. PT HAD 2 LIQUID STOOLS THIS SHIFT; PT CLEANED AND BARRIER OINTMENT APPLIED. POOR APPETITE - PT DID EAT 1 APPLESAUCE FOR LUNCH AND ONE FOR DINNER. ENCOURAGED PT TO EAT MORE, BUT UNSUCCESSFULL. SATURDAY WOUND PIC OF RIGHT HIP TAKEN AND WOUND REDRESSED. FAMILY VIISTED THIS MORNING AND THIS EVENING. FAMILY WOULD LIKE HOSPITALIST TO CALL WITH UPDATE IN THE MORNING. UPDATE GIVEN TO PT'S THIS MORNING BUT THIS RN. PT DENIED PAIN THIS SHIFT. ISOLATION MAINTAINED. TURNS Q2HRS. HIGH FALL RISK PRECAUTIONS IN PLACE. CALL LIGHT IS WITHIN REACH.
[2019-01-25 20:00] VITALS: BP 115/46
[2019-01-26] VITALS: BP 130/45
[2019-01-26 04:00] VITALS: BP 129/40
[2019-01-26 04:27] LABS: HEMATOCRIT 21.1 % (42.0-52.0); MCH 32.5 pg (26.0-34.0); MCHC 33.3 g/dL (28.0-37.0); MCV 97.6 fL (80.0-100.0); MPV 10.3 fl. (7.2-11.1); RBC 2.17 mil/uL (4.50-6.00); RDW-CV 15.5 % (10.5-14.5); WBC 19.4 thou/uL (4.0-11.0)
[2019-01-26 05:05] LABS: CALCIUM 8.1 mg/dL (8.5-10.1); CREATININE 1.4 mg/dL (0.6-1.3); MAGNESIUM 1.9 mg/dL (1.8-2.4); POTASSIUM 3.8 mmol/L (3.5-5.1)
--- NOTE | 2019-01-26 05:06 | NUR ---
ASSUMED PT CARE AT APPROX 1930. PT IS AWAKE AND ORIENTED TO SELF, PLACE AND TIME. CAN BE FORGETFUL AT TIMES. VSS ON 3L/NC OF O2. ON TRILOGY AT HS. NO DESATURATIONS NOTED. RE-ASSESSMENT DONE AND CHARTED. DENIES ANY PAIN OR DISCOMFORT. REPOSITIONED EVERY 2 HOURS. KEPT DRY, PERINEAL CARE DONE AND CHUCKS CHANGED PRN. FOR POSSIBLE EGD IN THE MORNING. KEPT ON NPO POST MIDNIGHT. NEEDS ATTENDED. HOURLY ROUNDING DONE FOR PT.SAFETY. CALL LIGHT WITHIN REACH. FALL PRECAUTIONS IN PLACE.
[2019-01-26 08:00] VITALS: BP 118/43
[2019-01-26 11:47] VITALS: BP 110/30
--- NOTE | 2019-01-26 13:12 | NUR ---
Spoke with via phone, she is at home sick. plans to be at the hospital in the morning, TOPHER arranged a meeting for and , meeting will be at 10am in the morning. Updated Dr Jimenes. also requested a list of palliative care agencies that also have hospice, TOPHER will provide to tomorrow.
--- NOTE | 2019-01-26 16:40 | NUR ---
PT RESTING IN BED THROUGHOUT SHIFT. PT REPOSITIONED FREQUENTLY. INCONTINENT OF BOWEL AND BLADDER. FREQUENT MARK CARE PERFORMED. NO PLAN FOR GI PROCEDURES PER PULMONARY. FAMILY UPDATED ON PLAN OF CARE.POOR APPETITE. PO FLUIDS ENCOURAGED. PT REFUSES TO GET UP IN CHAIR
--- NOTE | 2019-01-26 18:22 | NUR ---
REPORT CALLED TO DENNISE ON . PT TRANSFERRED VIA BED. FAMILY NOTIFIED
--- NOTE | 2019-01-26 18:28 | NUR ---
PATIENT TRANFERRED FROM [facility] TO ROOM 315 AT THIS TIME. REPORT RECEIVED FROM BRIAN FABIAN. NO COMPLAINTS AT THIS TIME. PATIENT REFUSING DINNER THIS EVENING, WILL HOLD INSULIN. IV SL. TURN Q2. REMAINS IN SPECIAL CONTACT. 3L NC IN PLACE, NO DISTRESS NOTED.
[2019-01-26 20:01] VITALS: BP 126/42
[2019-01-27 04:54] LABS: HEMATOCRIT 22.2 % (42.0-52.0); HEMOGLOBIN 7.3 gm/dL (14.0-18.0); MCH 31.9 pg (26.0-34.0); MCHC 32.7 g/dL (28.0-37.0); MCV 97.5 fL (80.0-100.0); MPV 10.5 fl. (7.2-11.1); RBC 2.28 mil/uL (4.50-6.00); RDW-CV 15.3 % (10.5-14.5); WBC 16.9 thou/uL (4.0-11.0)
[2019-01-27 05:13] LABS: ALBUMIN 2.4 g/dL (3.4-5.0); CREATININE 1.4 mg/dL (0.6-1.3); MAGNESIUM 1.8 mg/dL (1.8-2.4); POTASSIUM 4.1 mmol/L (3.5-5.1); TOTAL BILIRUBIN 0.3 mg/dL (<0.1-1.0); TOTAL PROTEIN 4.6 g/dL (6.4-8.2)
[2019-01-27 08:00] VITALS: BP 113/70
[2019-01-27 17:24] VITALS: BP 117/46
--- NOTE | 2019-01-27 18:16 | NUR ---
PATIENT ON 3L NC. O2 SAT @ 100% IN THE AM. PATIENT HAD BM IN THE AM. PATIENT EATING ONLY ABOUT 25% OF MEAL TRAY. PATIENT ICONTITENT OF STOOL AND URINE. ANTIFUNGAL APPLIED TO PATIENT'S MARK-AREA DUE TO REDNESS IN THE MARK-AREA. PATIENT VISITED BY FAMILY.
[2019-01-27 20:30] VITALS: BP 132/83
--- NOTE | 2019-01-28 05:16 | NUR ---
PT SLEPT ON AND OFF THIS SHIFT. ASSESSMENT DOCUMENTED. MEDS GIVEN PER E-JAN. IV PATENT. HOME TRILOGY WORN WHILE SLEEPING. PT INCONTINENT THOUGH NIGHT. WILL CONTINUE WITH PLAN OF CARE.
[2019-01-28 07:55] VITALS: BP 134/50
[2019-01-28 16:00] VITALS: BP 110/49
--- NOTE | 2019-01-28 17:42 | NUR ---
PATIENT RESTING IN BED. PATIENT DENIES ANY PAIN. PATIENT DOES HAVE COMPLAINTS OF NAUSEA WITH VOMITING. PATIENT HAS POOR APPETITE. PATIENT REFUSED MEDICATIONS. PATIENT HAS BEEN INCONTINENT OF BOWEL AND BLADDER. PATIENT DENIES ANY NEEDS AT THIS TIME. CALL LIGHT WITHIN REACH. WILL CONTINUE TO MONITOR.
[2019-01-28 21:00] VITALS: BP 110/39
[2019-01-29 04:11] LABS: HEMATOCRIT 22.3 % (42.0-52.0); HEMOGLOBIN 7.3 gm/dL (14.0-18.0); MCH 32.1 pg (26.0-34.0); MCHC 32.6 g/dL (28.0-37.0); MCV 98.5 fL (80.0-100.0); MPV 10.7 fl. (7.2-11.1); RBC 2.26 mil/uL (4.50-6.00); RDW-CV 15.9 % (10.5-14.5); WBC 18.9 thou/uL (4.0-11.0)
[2019-01-29 04:27] LABS: ALBUMIN 2.6 g/dL (3.4-5.0); CALCIUM 8.1 mg/dL (8.5-10.1); CREATININE 1.5 mg/dL (0.6-1.3); MAGNESIUM 1.9 mg/dL (1.8-2.4); TOTAL BILIRUBIN 0.3 mg/dL (<0.1-1.0); TOTAL PROTEIN 4.8 g/dL (6.4-8.2)
--- NOTE | 2019-01-29 05:26 | NUR ---
PT SLEPT MOST OF SHIFT. ASSESSMENT DOCUMENTED. MEDS GIVEN PER E-MAR. IV PATENT. NO REPORTS OF PAIN OR NAUSEA THIS SHIFT. PT REFUSED SOME OF HIS MEDICATIONS THIS SHIFT. HOME TRILOGY WORN WHILE SLEEPING, 3.5L NC WORN WHILE AWAKE. WILL CONTINUE WITH PLAN OF CARE.
[2019-01-29 07:40] VITALS: BP 126/78
--- NOTE | 2019-01-29 18:50 | NUR ---
PATIENT ON BED THROUGH SHIFT. PATIENT ON 3.5L NC. BREATHING LABORED. PATIENT ON CLEAR LIQUID DIET. IV ON TYSON DC'D DUE TO LEAKAGE. NEW IV STARTED ON LFA. PATIENT SL. PATIENT NPO AFTER MIDNIGHT. TRILOGY AT NIGHT. PATIENT SCHEDULED FOR EGD AND SIGMOIDOSCOPY TOMORROW.
[2019-01-30 04:31] LABS: HEMATOCRIT 22.5 % (42.0-52.0); HEMOGLOBIN 7.4 gm/dL (14.0-18.0); MCH 32.6 pg (26.0-34.0); MCHC 33.1 g/dL (28.0-37.0); MCV 98.4 fL (80.0-100.0); MPV 10.9 fl. (7.2-11.1); RBC 2.28 mil/uL (4.50-6.00); RDW-CV 15.7 % (10.5-14.5); WBC 17.5 thou/uL (4.0-11.0)
--- NOTE | 2019-01-30 04:33 | NUR ---
PATIENT SLEPT WELL DURING THIS SHIFT. PT TURNED Q2H PER PROTOCAL; HEELS ELEVATED. BARRIER CREAM APPLIED TO REDDENED MARK AREA. PT INCONTIENT OF URINE. PT HAD NO BOWEL MOVEMENTS DURING THIS SHIFT. PT WITH IV IN LT FOREARM. PT ABLE TO TAKE PILLS WHOLE WITH APPLE JUICE. PT ON O2 @ 3 LITERS PER NASAL CANNULA DURING THE DAY BUT PLACED ON TRILOGY AT NIGHT. PT MADE NPO AT MIDNIGHT FOR EGD AND SIGMOIDOSCOPY THIS MORNING. PT DENIES PAIN/NAUSEA. FREQUENTLY USED ITEMS AND CALL LIGHT WITHIN REACH. SIDERAILS UPX4 AND BED ALARM ON. PT REMAINS IN SPECIAL CONTACT ISOLATION. WILL CONTINUE TO MONITOR.
[2019-01-30 04:35] VITALS: BP 115/30
[2019-01-30 04:47] LABS: ALBUMIN 2.7 g/dL (3.4-5.0); CALCIUM 8.3 mg/dL (8.5-10.1); CREATININE 1.5 mg/dL (0.6-1.3); MAGNESIUM 2.4 mg/dL (1.8-2.4); POTASSIUM 5.2 mmol/L (3.5-5.1); TOTAL BILIRUBIN 0.2 mg/dL (<0.1-1.0)
[2019-01-30 20:00] VITALS: BP 117/47
--- NOTE | 2019-01-31 04:25 | NUR ---
ASSUMED CARE OF PT AFTER REPORT AT 1930. PT A&OX3-4. FORGETFUL AT TIMES. VSS. PHYSICAL ASSESSMENT COMPLETED AND CHARTED. PT ON O2 AT 3L NC AND TRILOGY WHILE SLEEPING. PT DENIES ANY PAIN OR DISCOMFORT. PT WITH EPISODE OF INCONTINENT BLADDER. NO BM AT THIS TIME. MAINTAINED ON ISOLATION PRECAUTION FOR C. DIFF. PT RESTED WELL ON BED. HOURLY ROUNDING OBSERVED. CALL LIGHT WITHIN REACH.
[2019-01-31 08:22] VITALS: BP 140/42
--- NOTE | 2019-01-31 15:56 | NUR ---
ASSUMED CARE AT 0730. ALERT AND ORIENTED PLEASANT COOPERATIVE. HX OF RESP FAILURE AND C DIFF. PT. IS WEARING O2 AT 3L/M PER N/C CONTINOUS ON ASPIRATION PRECAUTIONS. FEEDS SELF WITH SET UP. TOOK MEDS WHOLE WITH APPLESAUCE TODAY. HOB ELEVATED. PT. IS INCONTINENT URINE X 2 SKIN CARE AND MOISTURE BARRIER APPLIED. TURNED EVERY 2 HRS FOR SKIN PROTECTION. DENIES PAIN OR REQUESTS. HERE EARLIER PT. IN SPECIAL CONTACT PRECAUTIONS.
[2019-01-31 16:23] VITALS: BP 129/51
[2019-01-31 20:00] VITALS: BP 121/55
--- NOTE | 2019-02-01 02:55 | NUR ---
ASSUMED PT CARE @ 1930. PT HAD N/V UNRELIEVED BY PRN DORINA. RESEARCH LAB ASSISTANT NOTIFIED. ADDITIONAL PRN N/V MEDICATION ORDERED AND GIVEN. (SEE EMAR). EFFECTIVE. NO RESP DISTRESS NOTIFIED OR OBSERVED. PT KEPT HOME TRILOGY ON MOST OF NIGHT. CALL LIGHT IN REACH. HOURLY ROUNDING FOR SAFETY.
--- NOTE | 2019-02-01 09:00 | NUR ---
REC'D REPORT FROM NOC RN, ASSUMED CARE OF PT APPROX 0730. UPON FIRST ENCOUNTER, PT HAS FECES ON HANDS, BEDDING, LEGS AND IS MUMBLING INCOHERENTLY. INCONTINENCE CARE GIVEN, ASSESSMENT COMPLETE, VS OBTAINED. VS WNL, O2 SATS 94% 3L/MIN NC. TRILOGY TO BE USED MUCH POSSIBLE TODAY PER DR. GARY. ORIENTED TO SELF, UNABLE TO COMMUNICATE NEEDS TO STAFF. FREQUENT OBSERVATION WILL BE PROVIDED. DTR AT BS HELPING WITH BREAKFAST. HOURLY ROUNDING FOR SAFETY AND PT NEEDS.
[2019-02-01 09:06] VITALS: BP 149/72
[2019-02-01 16:17] VITALS: BP 117/40
[2019-02-02 04:09] LABS: HEMOGLOBIN 7.5 gm/dL (14.0-18.0); MCHC 32.6 g/dL (28.0-37.0); MCV 98.3 fL (80.0-100.0); MPV 10.8 fl. (7.2-11.1); RBC 2.34 mil/uL (4.50-6.00); RDW-CV 15.8 % (10.5-14.5); WBC 18.8 thou/uL (4.0-11.0)
[2019-02-02 04:19] LABS: CALCIUM 8.5 mg/dL (8.5-10.1); CREATININE 1.6 mg/dL (0.6-1.3); MAGNESIUM 1.9 mg/dL (1.8-2.4); POTASSIUM 4.6 mmol/L (3.5-5.1)
--- NOTE | 2019-02-02 05:21 | NUR ---
ASSUMED PT CARE @ 1930. PT ORIETED TO SELF. LUCID @ TIMES; MORE CONFUSED @ OTHERS. PT MORE CONFUSED IN AM THAN BEFORE FALLING ASLEEP AT NIGHT THE PAST 2 MORNINGS OBSERVED BY THIS RN. PT DOES WEAR CPAP MOST OF TIME. WILL OCCASIONALLY TAKE IT OFF. TAKES MEDS WHOLE WITH APPLESAUCE. NO DIARRHEA NOTED THIS SHIFT. PT IS USING URINAL MORE AND LESS INCONTINENT THAN PRIOR MAINTENANCE MECHANIC 2ND SHIFT. CALL LIGHT IN REACH. BED ALARM ON MODERATE LEVEL. HOURLY AND MORE FREQUENT ROUNDING PRN FOR SAFETY.
[2019-02-02 08:00] VITALS: BP 127/60; BP 148/77
--- NOTE | 2019-02-02 10:00 | NUR ---
[facility] AT BS. GRASPS UNDERSTANDING THAT PT IS NOT ABLE TO PARTICIPATE MUCH IN THERAPY AND WILL NOT TOLERATE THERAPY AT [facility]. ASKING ABOUT HOSPICE BUT UNSURE OF WHAT COMPANY SHE PREFERS. WILL ATTEMPT TO ARRANGE HOSPICE VISIT WHEN IT IS KNOWN WHAT COMPANY PT WANTS TO USE
--- NOTE | 2019-02-02 15:51 | NUR ---
SPOKE TO RE HOSPICE THIS AM. INTERESTED IN HOSPICE. INTERESTED IN [facility] BUT THEY DO NOT CURRENTLY HAVE BEDS. STATES THAT SHE DOES NOT HAVE A PREFERENCE ON COMPANY. [facility] CALLED. VISIT ARRANGED FOR 1100 AM TOMORROW 02/03. [facility] NOTIFIED
[2019-02-02 16:18] VITALS: BP 123/49
--- NOTE | 2019-02-02 16:43 | NUR ---
Pt discussed with pt nurse the preference for an information visit with [facility]; car sales representative from [facility] to visit with pt/pt tomorrow.
--- NOTE | 2019-02-02 17:33 | NUR ---
PT RESTING IN BED THROUGHOUT SHIFT. PT INCONTINENT OF URINE AND STOOL,PERICARE PERFORMED FREQUENTLY. PT REPOSITIONED EVERY TWO HOURS. PT UP TO CHAIR WITH THERAPY BUT DOES NOT TOLERATE BEING UP FOR LONG PERIOD. AND DAUGHTER UPDATED ON PLAN OF CARE. HOSPICE VISIT IN AM
[2019-02-02 20:00] VITALS: BP 119/37
--- NOTE | 2019-02-03 05:08 | NUR ---
ASSSUMED PT CARE @ 1930. PT HAS BEEN SLEEPING MOST OF SHIFT. DID WAKE UP BREIFLY DURING TURNS AND PERICARE. PT HAS KEPT HIS TRILOGY ON ALL NIGHT. REFUSED NIGHT MEDS. CALL LIGHT IN REACH. WILL CONTINUE TO MONITOR FOR SAFEFTY.
[2019-02-03 08:00] VITALS: BP 122/40
--- NOTE | 2019-02-03 16:38 | NUR ---
SW called and spoke with pt Linda after discussing with Dr Julian and hearing from Rachel with [facility] that pt family decided on hospice services and would prefer [facility]. Pt confirmed decision to arrange hospice with [facility] and pt plans for pt to be home with and her care and hospice support. SW mentioned possibility for dc tomorrow; pt hopeful for in order to prepare home and for hospice to be able to have needed supplies and services established. SW discussed that this could happen in a day but that SW would discuss with doctor tomorrow as well. SW to fax info needed to [facility] and dc info/orders.
[2019-02-03 17:42] VITALS: BP 128/37
[2019-02-03 20:50] VITALS: BP 124/38
--- NOTE | 2019-02-04 05:18 | NUR ---
PT SLEPT MOST OF SHIFT. ASSESSMENT DOCUMENTED. MEDS GIVEN PER E-MAR. IV RENNY. NO REPORTS OF PAIN OR NAUSEA THIS SHIFT. PT REFUSED SOME OF HIS MEDICATIONS THIS SHIFT. O2 WORN MOST OF NIGHT, TRILOGY WORN PART OF SHIFT. WILL CONTINUE WITH PLAN OF CARE.
[2019-02-04 08:00] VITALS: BP 131/42
--- NOTE | 2019-02-04 10:16 | NUR ---
SW faxed referral info and progress notes to [facility] and called and left a message for Rachel with [facility] to provide updated info and in preparation for pt to dc home today pending final dc orders. SW will fax final orders when available. SW to contact pt as well to coordinate timing of pt transition home, arrange ambulance and continue to assist with finalization of safe dc plan.
[2019-02-04] MEDS ORDERED: ATIVAN0.5 MG PO (14:41)
[2019-02-04] MEDS ORDERED: REGLAN 10 MG TA10 MG PO (14:42)
[2019-02-04] MEDS ORDERED: PROTONIX40 M2 PO (14:42)
[2019-02-04] MEDS ORDERED: CARAFATE 11 GM/10 M1 PO (14:42)
[2019-02-04] MEDS ORDERED: TRANSDERM-SCOP1 EACH TRANSDERM (14:42)
[2019-02-04] MEDS ORDERED: PREDNISONE 20 M20 MG PO (14:43)
[2019-02-04] MEDS ORDERED: MEGESTROL ACETA40 MG PO (14:44)
[2019-02-04] MEDS ORDERED: MSL20MG/ML PO (14:44)
[2019-02-04 15:15] VITALS: BP 131/42
--- NOTE | 2019-02-04 15:21 | NUR ---
PATIENT HAS BEEN IN BED MOST OF THE DAY. FEEDS PATIENT. SEEN BY DOCTOR AND ORDERS TO DISCHARGE.
[2019-02-04 16:00] VITALS: BP 137/58
[2019-02-04 16:10] VITALS: BP 131/42
[2019-02-04 16:52] VITALS: BP 131/42
--- NOTE | 2019-02-04 16:52 | NUR ---
METAL LOADER INFORMED THAT THE PATIENT WOULD D/C HOME TODAY WITH AND [facility]. D/C ORTHOPEDICS NURSE SPOKE TO THE PATIENT'S AND SHE CONFIRMS THIS INFO. D/C ORTHOPEDICS NURSE SPOKE TO FREDI WITH [facility] AND SHE CONFIRMS THAT [facility] IS READY TO BRING THE PATIENT ON-SERVICE FOR HOSPICE CARE AND HAVE ALL EQUIPMENT ARRANGED AND WILL HAVE THE PATIENT'S HOSPITAL BED DELIVERED BETWEEN [phone]. D/C ORTHOPEDICS NURSE FAXED THE PATIENT'S D/C ORDERS AND SCRIPTS TO [facility]. D/C PLANNNER ARRANGED [facility] TRANSPORT FOR THE PATIENT FOR 1729. PATIENT'S SPOUSE AND RN IN-CHARGE OF THE PATIENT INFORMED OF THE PATIENT' STIME OF TRANSPORT, AND BOTH ARE IN AGREEMENT. CM WILL REMAIN AVAILABLE TO ASSIST AND FOLLOW NEEDED.
--- NOTE | 2019-02-04 18:00 | NUR ---
PATIENT LEFT VIA AMBULANCE TO 'S CARE. CALLED AND GAVE HER DISCHARGE INSTRUCTIONS. REVIEW OF MEDS. LEFT IN STABLE CONT.
== END 2019-02-04 18:02 | disposition hospice, home (50) | DRG 871 ==
LOC: M.ERS 08:30 → M.ICU 11:16 → M.TBA-ER 11:16 → M.2W 12:25 → M.ICU 01-18 06:36 → M.2W 01-19 19:30 → M.3W 01-26 18:14
PROVIDERS: Emergency Medicine Emergency Medical Services; Internal Medicine; Internal Medicine Infectious Disease; Internal Medicine Pulmonary Disease; Specialist; ADMIT Internal Medicine
PROC: 5A09357 Assistance with Respiratory Ventilation, Less than 24 Consecutive Hours, Continuous Positive Airway Pressure (ICD-10-PCS; principal; 2019-01-16)
PROC: 5A09357 Assistance with Respiratory Ventilation, Less than 24 Consecutive Hours, Continuous Positive Airway Pressure (ICD-10-PCS; 2019-01-17)
PROC: 5A09357 Assistance with Respiratory Ventilation, Less than 24 Consecutive Hours, Continuous Positive Airway Pressure (ICD-10-PCS; 2019-01-18)
PROC: 5A09357 Assistance with Respiratory Ventilation, Less than 24 Consecutive Hours, Continuous Positive Airway Pressure (ICD-10-PCS; 2019-01-19)
PROC: 5A09357 Assistance with Respiratory Ventilation, Less than 24 Consecutive Hours, Continuous Positive Airway Pressure (ICD-10-PCS; 2019-01-20)
PROC: 5A09357 Assistance with Respiratory Ventilation, Less than 24 Consecutive Hours, Continuous Positive Airway Pressure (ICD-10-PCS; 2019-01-21)
PROC: 5A09357 Assistance with Respiratory Ventilation, Less than 24 Consecutive Hours, Continuous Positive Airway Pressure (ICD-10-PCS; 2019-01-23)
PROC: 5A09357 Assistance with Respiratory Ventilation, Less than 24 Consecutive Hours, Continuous Positive Airway Pressure (ICD-10-PCS; 2019-01-27)
PROC: 5A09357 Assistance with Respiratory Ventilation, Less than 24 Consecutive Hours, Continuous Positive Airway Pressure (ICD-10-PCS; 2019-01-28)
PROC: 5A09357 Assistance with Respiratory Ventilation, Less than 24 Consecutive Hours, Continuous Positive Airway Pressure (ICD-10-PCS; 2019-01-29)
PROC: 0DJD8ZZ Inspection of Lower Intestinal Tract, Via Natural or Artificial Opening Endoscopic (ICD-10-PCS; 2019-01-30)
PROC: 5A09357 Assistance with Respiratory Ventilation, Less than 24 Consecutive Hours, Continuous Positive Airway Pressure (ICD-10-PCS; 2019-01-30)
PROC: 5A09357 Assistance with Respiratory Ventilation, Less than 24 Consecutive Hours, Continuous Positive Airway Pressure (ICD-10-PCS; 2019-01-31)
PROC: 5A09357 Assistance with Respiratory Ventilation, Less than 24 Consecutive Hours, Continuous Positive Airway Pressure (ICD-10-PCS; 2019-02-02)
PROC: 5A09357 Assistance with Respiratory Ventilation, Less than 24 Consecutive Hours, Continuous Positive Airway Pressure (ICD-10-PCS; 2019-02-03)
PROC: 5A09357 Assistance with Respiratory Ventilation, Less than 24 Consecutive Hours, Continuous Positive Airway Pressure (ICD-10-PCS; 2019-02-04)
DX: A41.9 Sepsis, unspecified organism (principal); I50.33 Acute on chronic diastolic (congestive) heart failure; J96.21 Acute and chronic respiratory failure with hypoxia; J18.9 Pneumonia, unspecified organism; N17.0 Acute kidney failure with tubular necrosis; G93.40 Encephalopathy, unspecified; J44.0 Chronic obstructive pulmonary disease with (acute) lower respiratory infection; J44.1 Chronic obstructive pulmonary disease with (acute) exacerbation; K55.9 Vascular disorder of intestine, unspecified; A04.72 Enterocolitis due to Clostridium difficile, not specified as recurrent; E46 Unspecified protein-calorie malnutrition; D12.5 Benign neoplasm of sigmoid colon; Z66 Do not resuscitate; R65.20 Severe sepsis without septic shock; Z51.5 Encounter for palliative care; I07.1 Rheumatic tricuspid insufficiency; K21.9 Gastro-esophageal reflux disease without esophagitis; N18.3 Chronic kidney disease, stage 3 (moderate); D64.9 Anemia, unspecified; D69.6 Thrombocytopenia, unspecified; Z99.81 Dependence on supplemental oxygen; Z68.20 Body mass index [BMI] 20.0-20.9, adult; Z79.51 Long term (current) use of inhaled steroids; Z79.899 Other long term (current) drug therapy